=== PATIENT | male | born 2000 | race Caucasian/White ===

== ENCOUNTER 2021-06-24 12:41 | Outpatient (RCR) | payer MEDICAID, SELFPAY ==
--- NOTE | ~2021-06-24 | XR_ITS ---
EXAMINATION: XR SACRUM AND COCCYX CLINICAL INFORMATION: Sacral wound COMPARISON: None TECHNIQUE: 3 views of the sacrum/coccyx FINDINGS: There is no fracture or malalignment. Soft tissue irregularity overlies the distal sacrum/coccyx. There is suggestion of mild erosion of a portion of the proximal coccyx. The sacroiliac joints are symmetric. Normal bowel gas pattern. XR/XR sacrum coccyx min 2V IMPRESSION: Soft tissue wound overlying the distal sacrum/coccyx with suggestion of mild erosion of the proximal coccyx. This could represent osteomyelitis.
== END 2022-03-09 12:58 | disposition home or self-care (01) ==
LOC: HO.WCC 12:41
PROVIDERS: PCP Nurse Practitioner Family; Referring Provider Physical Medicine & Rehabilitation; Visit Provider Physician Assistant
DX: L89.154 Pressure ulcer of sacral region, stage 4 (principal); L89.102 Pressure ulcer of unspecified part of back, stage 2; T81.31XA Disruption of external operation (surgical) wound, not elsewhere classified, initial encounter; M46.28 Osteomyelitis of vertebra, sacral and sacrococcygeal region; L90.5 Scar conditions and fibrosis of skin; G82.21 Paraplegia, complete; Z79.2 Long term (current) use of antibiotics
CPT/HCPCS: 11042; 11043; 11044; 11045; 17250; 72220; 87071; 87073; 87077; 87186; 87205; 88304; 88305; 88311; 97597; 97605; 99212; 99213